=== PATIENT | male | born 1985 ===

== ENCOUNTER 2019-01-05 10:07 | Emergency (ER) | payer OTHER ==
[2019-01-05 10:45] VITALS: BP 122/79; PULSE 63; RESP 20; TEMP 97.5; O2SAT 98
--- NOTE | 2019-01-05 11:46 | C.PDOC ---
History Of Present Illness 33 y/o male presents to the ER complaining of lower back pain which occurred [employer]. 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 He put his hand on the handhold to maintain balance and he strained his lower back. Denies having bowel/bladder incontinence. <Tolu Castle - Last Filed: 01/05/19 15:23> History Per: Patient History/Exam Limitations: no limitations Onset/Duration Of Symptoms: Days Current Symptoms Are (Timing): Still Present Severity: Moderate <Tolu Castle - Last Filed: 01/05/19 15:23> <Marcia Almazan Letitia - Last Filed: 01/06/19 07:15> Chief Complaint (Nursing): Back Pain Past Medical History Reviewed: Historical Data, Nursing Documentation, Vital Signs Vital Signs: Last Vital Signs Temp 97.5 F L 01/05/19 10:40 Pulse 63 01/05/19 10:40 Resp 20 01/05/19 10:40 BP 122/79 01/05/19 10:40 Pulse Ox 98 01/05/19 10:40 - Medical History PMH: No Chronic Diseases Surgical History: No Surg Hx Family History: States: No Known Family Hx - Social History Hx Alcohol Use: No Hx Substance Use: No - Immunization History Hx Tetanus Toxoid Vaccination: No Hx Influenza Vaccination: No Hx Pneumococcal Vaccination: No <Tolu Castle - Last Filed: 01/05/19 15:23> Vital Signs: Last Vital Signs Temp 97.5 F L 01/05/19 10:40 Pulse 63 01/05/19 10:40 Resp 20 01/05/19 10:40 BP 122/79 01/05/19 10:40 Pulse Ox 98 01/05/19 15:32 <Marcia Almazan M - Last Filed: 01/06/19 07:15> Review Of Systems Except As Marked, All Systems Reviewed And Found Negative. Genitourinary: Negative for: Incontinence Musculoskeletal: Positive for: Back Pain <Tolu Castle - Last Filed: 01/05/19 15:23> Physical Exam - Physical Exam Appears: Non-toxic, No Acute Distress Skin: Normal Color, Warm, Dry Head: Atraumatic, Normacephalic Eye(s): bilateral: Normal Inspection Nose: Normal Oral Mucosa: Moist Neck: Supple Chest: Symmetrical Back: No Vertebral Tenderness, Other (bilateral lumbosacral tenderness) Neurological/Psych: Oriented x3, Normal Speech, Normal Motor, Normal Sensation <TinTolu woody - Last Filed: 01/05/19 15:23> ED Course And Treatment O2 Sat by Pulse Oximetry: 98 (RA) Pulse Ox Interpretation: Normal <TinTolu - Last Filed: 01/05/19 15:23> Medical Decision Making Medical Decision Making: low back strain no trauma to lower back normal neuro ice/NSAIDS <TinTolu - Last Filed: 01/05/19 15:23> Disposition Doctor Will See Patient In The: Office Counseled Patient/Family Regarding: Studies Performed, Diagnosis - Disposition Disposition Time: 11:46 <TinNeil - Last Filed: 01/05/19 15:23> <Marcia Almazan M - Last Filed: 01/06/19 07:15> - Disposition Referrals: [facility] [Outside] [facility] [facility] [place] [Outside] [facility] [Outside] [facility] [Outside] Disposition: HOME/ ROUTINE Condition: GOOD Additional Instructions: ice packs 1/2 hour per hour, nothing hot no hot showers for 3 days Advil/Motrin 400-600 mg every 6 hours as needed for pain/inflammation follow-up with your Workman's Comp Physician's to dermine when you may return to work Instructions: Lumbar Muscle Strain (DC) Forms: [employer] ([place]), Work Excuse - Clinical Impression Clinical Impression: Low back strain - Scribe Statement The provider has reviewed the documentation as recorded by the Scribe Denae Alejo Provider Attestation: All medical record entries made by the Scribe were at my direction and personally dictated by me. I have reviewed the chart and agree that the record accurately reflects my personal performance of the history, physical exam, medical decision making, and the department course for this patient. I have also personally directed, reviewed, and agree with the discharge instructions and disposition. 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 As per protocol we are requested to draw labs for toxicology. This has been approved by administration. <Marcia Almazan - Last Filed: 01/06/19 07:15>
== END 2019-01-05 11:51 | disposition home or self-care (01) ==
LOC: C.ER 10:07
DX: S39.012A Strain of muscle, fascia and tendon of lower back, initial encounter (principal); X50.9XXA Other and unspecified overexertion or strenuous movements or postures, initial encounter